=== PATIENT | female | born 1995 | race Caucasian/White ===

== ENCOUNTER 2021-08-15 13:09 | Emergency (ER) | payer OTHER ==
[2021-08-15 13:19] VITALS: BP 98/71
--- NOTE | 2021-08-15 14:05 | Emergency Department Report ---
Minor Respiratory - HPI Chief Complaint: Upper Respiratory Infection Stated Complaint: COUGH Time Seen by Provider: 08/15/21 13:35 Duration: 1 week Minor Respiratory: Yes Rhinorrhea, Yes Sore Throat, Yes Able to Tolerate Fluids, Yes Cough, Yes Sick Contacts, Yes Chest Pain (With cough), No Ear Pain, No Hemoptysis, No Shortness of Breath, No Fever Other History: 26-year-old female presents to the emergency room for a 1 week history of sore throat, runny nose, cough and chest discomfort with cough. Patient admits to a sick contact her grandmother. She does have postnasal drip. She states that she has been taken throat loss injures Tylenol cough syrup and drinking orange juice. She denies any past medical history currently takes no meds on a daily basis and has no known drug allergies. Patient denies any fever no chills no nausea no vomiting no shortness of breath. Patient reports she has been vaccinated for Covid but does not have a flu vaccination. ED Review of Systems ROS: Stated complaint: COUGH Other details as noted in HPI ED Past Medical Hx - Past Medical History Previous Medical History?: No Hx Hypertension: No Hx Diabetes: No Hx Deep Vein Thrombosis: No Hx Renal Disease: No Hx Sickle Cell Disease: No Hx Seizures: No Hx Asthma: No Hx HIV: No - Surgical History Past Surgical History?: No - Social History Smoking Status: Never Smoker - Medications Home Medications: Home Medications Medication Instructions Recorded Confirmed Last Taken Type Docusate Sodium [Colace] 100 mg PO BID PRN #60 capsule 07/13/20 Unknown Rx Ferrous Sulfate [Feosol 325 MG tab] 325 mg PO QDAY #60 tablet 07/13/20 Unknown Rx Ibuprofen [Motrin 800 MG tab] 800 mg PO Q8HR PRN #30 tablet 07/13/20 Unknown Rx Lidocain2.5%/Prilocai2.5% [Emla] 2 gm TP ONCE #1 tube 07/13/20 Unknown Rx Pnv No.133/Ferrous Fum/Folic [Gs 1 each PO DAILY 07/13/20 07/13/20 Unknown History Vitamins Tablet] oxyCODONE /ACETAMINOPHEN [Percocet 1 tab PO Q4HR #30 tab 07/13/20 Unknown Rx 5/325] Promethazine Dm (Nf) [Phenergan DM 5 ml PO Q6H PRN #100 ml 08/15/21 Unknown Rx 6.25-15 mg/5 ml] Minor Respiratory Exam - Exam General: Vital signs noted. No distress. Alert and acting appropriately. Neurologic: Alert and oriented, no deficits. Musculoskeletal: Unremarkable. ED Course Vital Signs 08/15/21 13:17 Temperature 98.7 F Pulse Rate 86 Respiratory 20 Rate Blood Pressure 98/71 [Right] O2 Sat by Pulse 98 Oximetry ED Medical Decision Making - Radiology Data Radiology results: report reviewed [facility] [address] [place] [address] XRay Report Signed Patient: SEAN PEPPER MR#: [id number] 11 : 1995 Acct:[id number] Age/Sex: 26 / F ADM Date: 08/15/21 Loc: ED Attending Dr: Ordering Physician: SERVANDO BALBUENA Date of Service: 08/15/21 Procedure(s): XR chest routine 2V Accession Number(s): [id number] cc: SERVANDO BALBUENA Fluoro Time In Minutes: CHEST 2 VIEWS INDICATION / CLINICAL INFORMATION: Cough x1 week. COMPARISON: None available. FINDINGS: SUPPORT DEVICES: None. HEART / MEDIASTINUM: No significant abnormality. LUNGS / PLEURA: No significant pulmonary or pleural abnormality. No pneumothorax. ADDITIONAL FINDINGS: Scoliotic curvature of the thoracolumbar spine. IMPRESSION: 1. No acute findings. Signer Name: Pollo Belle DO Signed: 08/15/2021 3:36 PM Workstation Name: [id number] Transcribed By: NS Dictated By: POLLO BELLE DO Electronically Authenticated By: POLLO BELLE DO Signed Date/Time: 08/15/21 1536 DD/ 1535 TD/TT: - Medical Decision Making 26-year-old female presents to the emergency room for a 1 week history of sore throat, runny nose, cough and chest discomfort with cough. Patient admits to a sick contact her grandmother. She does have postnasal drip. She states that she has been taken throat loss injures Tylenol cough syrup and drinking orange juice. She denies any past medical history currently takes no meds on a daily basis and has no known drug allergies. Patient denies any fever no chills no nausea no vomiting no shortness of breath. Patient reports she has been vaccinated for Covid but does not have a flu vaccination. hCG chest x-ray has been ordered Critical care attestation.: If time is entered above; I have spent that time in minutes in the direct care of this critically ill patient, excluding procedure time. ED Disposition Clinical Impression: Cough Allergic rhinitis Qualifiers: Allergic rhinitis trigger: unspecified Allergic rhinitis seasonality: unspecified Qualified Code(s): J30.9 - Allergic rhinitis, unspecified Disposition: 01 HOME / SELF CARE / HOMELESS Is pt being admited?: No Does the pt Need Aspirin: No Condition: Stable Instructions: Cough, Adult, [id number], Allergic Rhinitis, Adult, [id number] Additional Instructions: Chest x-ray is negative for any abnormalities. Recommend taking cough medication as prescribed following up with your primary care provider. Prescriptions: Promethazine Dm (Nf) [Phenergan DM 6.25-15 mg/5 ml] 5 ml PO Q6H PRN #100 ml PRN Reason: Cough Referrals: [facility] [Provider Group] - 3-5 Days Forms: Work/School Release Form(ED) Time of Disposition: 15:46
[2021-08-15 14:43] LABS: HCG Qualitative,Urine Negative (Negative)
--- NOTE | 2021-08-15 15:40 | XRay Report ---
CHEST 2 VIEWS INDICATION / CLINICAL INFORMATION: Cough x1 week. COMPARISON: None available. FINDINGS: SUPPORT DEVICES: None. HEART / MEDIASTINUM: No significant abnormality. LUNGS / PLEURA: No significant pulmonary or pleural abnormality. No pneumothorax. ADDITIONAL FINDINGS: Scoliotic curvature of the thoracolumbar spine. IMPRESSION: 1. No acute findings. Signer Name: Pollo Belle DO Signed: 08/15/2021 3:36 PM Workstation Name: [id number]
== END 2021-08-15 16:08 | disposition home or self-care (01) ==
LOC: ED 13:09
DX: R05.9 Cough, unspecified (principal); J30.9 Allergic rhinitis, unspecified
CPT/HCPCS: 71046; 81025; 99283

== ENCOUNTER 2022-03-29 22:44 | Emergency (ER) | payer OTHER ==
[2022-03-30 02:18] VITALS: BP 105/74
== END 2022-03-30 17:26 | disposition left against medical advice (07) ==
LOC: ED 22:44
DX: T19.2XXA Foreign body in vulva and vagina, initial encounter (principal); Z53.21 Procedure and treatment not carried out due to patient leaving prior to being seen by health care provider; X58.XXXA Exposure to other specified factors, initial encounter; Y93.89 Activity, other specified; Y92.89 Other specified places as the place of occurrence of the external cause; Y99.8 Other external cause status